=== PATIENT | male | born 1975 | race Caucasian/White ===

== ENCOUNTER 2017-04-11 07:58 | Emergency (ER) | payer MEDICARE | END 2017-04-11 08:40 | disposition home or self-care (01) | LOC: FER 07:58 | DX: S81.831A Puncture wound without foreign body, right lower leg, initial encounter (principal); K74.60 Unspecified cirrhosis of liver; F17.210 Nicotine dependence, cigarettes, uncomplicated; Z23 Encounter for immunization; Z79.899 Other long term (current) drug therapy; W61.33XA Pecked by chicken, initial encounter | CPT/HCPCS: 90471; 90715 ==